=== PATIENT | male | born 1995 | race Caucasian/White ===

== ENCOUNTER 2021-09-16 20:21 | Emergency (ER) | payer BC ==
[~2021-09-16] VITALS: Ht 188 cm; Wt 74.8 kg
--- NOTE | 2021-09-16 21:10 | NUR ---
[id number] FROM HOME C/O CHRONIC LOWER BACK PAIN WORSE TODAY. PT IS [id number]. ATTACHED TO MONITOR. VITALS CHECKED.
[2021-09-16] MEDS ORDERED: predniSONE 20 MG TABLET ONE (21:24)
[2021-09-16] MEDS ORDERED: KETOROLAC TROMETHAMINE INJ 30 MG/ML VIAL ONE (21:24)
[2021-09-16] MEDS ORDERED: HYDROCODONE/APAP 5/325MG TABLET ONE (21:24)
[2021-09-16] MEDS ORDERED: KETOROLAC TROMETHAMINE INJ 60 MG/2 ML VIAL IM ONE (21:30)
[2021-09-16] MEDS ORDERED: predniSONE 50 MG TABLET PO ONE (21:30)
[2021-09-16] MEDS ORDERED: HYDROCODONE/APAP 5/325MG TABLET PO ONE (21:30)
--- NOTE | 2021-09-16 21:38 | NUR ---
PAIN MEDS GIVEN
[2021-09-16] MEDS ORDERED: HYDR-4209 PO (22:19)
[2021-09-16] MEDS ORDERED: PRED50TA PO (22:19)
[2021-09-16] MEDS ORDERED: NAPR-1009 PO (22:19)
--- NOTE | 2021-09-16 22:23 | NUR ---
ASSISTED PATIENT WALKING. PAIN STARTED TO PROGRESS FROM 6 TO 8. ASSISTED PATIENT BACK TO BED. PATIENT WAS SHAKING FROM PAIN. SIVAN CRUZ MADE AWARE.
[2021-09-16] MEDS ORDERED: MORPHINE SULFATE INJ 2 MG/ML DISP.SYRIN ONE (22:26)
[2021-09-16] MEDS ORDERED: ONDANSETRON 4 MG TAB.RAPDIS ONE (22:26)
[2021-09-16] MEDS ORDERED: MORPHINE SULFATE INJ 2 MG/ML DISP.SYRIN IM ONE (22:30)
[2021-09-16] MEDS ORDERED: ONDANSETRON 4 MG TAB.RAPDIS SL ONE (22:30)
--- NOTE | 2021-09-16 23:09 | NUR ---
PATIENT ASSISTED FOR WALKING.
--- NOTE | 2021-09-16 23:09 | NUR ---
Patient discharged to home in stable condition. Written and verbal after care instructions givento patient and family. Patient verbalizes understanding of instruction.
[2021-09-16 23:10] VITALS: BP 120/72
== END 2021-09-16 23:11 | disposition home or self-care (01) ==
LOC: ER 20:25
DX: M54.41 Lumbago with sciatica, right side (principal); G89.29 Other chronic pain; F31.9 Bipolar disorder, unspecified; Z79.899 Other long term (current) drug therapy
CPT/HCPCS: 99284; 96372 ×2; J7512; J1885; Q0162; J2270